=== PATIENT | male | born 1970 | race African-American/Black ===

== ENCOUNTER 2017-10-02 17:08 | Emergency (ER) | payer MEDICAID, OTHER ==
[~2017-10-02] VITALS: Ht 180.3 cm; Wt 110.0 kg
[2017-10-02 17:09] VITALS: BP 188/100
[2017-10-02] MEDS ORDERED: SODIUM CHLORIDE 0.9% 1,000 ML IV ONE (17:14)
== END 2017-10-02 20:52 | disposition left against medical advice (07) ==
LOC: ER 19:44
DX: G92 Toxic encephalopathy (principal); F19.10 Other psychoactive substance abuse, uncomplicated; Z88.2 Allergy status to sulfonamides
CPT/HCPCS: 99283; J7030

== ENCOUNTER 2022-01-09 12:41 | Emergency (ER) | payer MEDICAID ==
[~2022-01-09] VITALS: Ht 188 cm; Wt 90.0 kg
[2022-01-09 12:54] VITALS: BP 156/114
[2022-01-09] MEDS ORDERED: SODIUM CHLORIDE 0.9% 1,000 ML IV ONE (13:00)
[2022-01-09 14:14] LABS: BASOPHILS % 0.3 % (0.0-2.0); EOSINOPHILS % 0.4 % (0.0-5.0); HEMATOCRIT. 39.6 % (42.0-52.0); HEMOGLOBIN. 13.2 g/dL (14.0-18.0); LYMPHOCYTES % 24.1 % (20.0-50.0); MEAN CORPUSCULAR VOLUME 89.7 fL (80.0-94.0); MONOCYTES % 6.7 % (2.0-8.0); NEUTROPHILS % 68.5 % (40.0-76.0); PLATELET 239 x1000/uL (130-400); RED BLOOD CELL COUNT 4.41 mill/uL (4.7-6.1); RED CELL DISTRIBUTION WIDTH 15.1 % (11.6-14.6)
[2022-01-09 14:23] LABS: CHLORIDE 107 mEq/L (98-107)
== END 2022-01-09 17:08 | disposition home or self-care (01) ==
LOC: ER 13:08
DX: F19.10 Other psychoactive substance abuse, uncomplicated (principal); R45.1 Restlessness and agitation; F12.10 Cannabis abuse, uncomplicated
CPT/HCPCS: 36415; 80053; 85025; 96360; 96361; 99283; J7030

== ENCOUNTER 2024-06-06 00:36 | Emergency (ER) | payer MEDICAID ==
[~2024-06-06] VITALS: Ht 188 cm; Wt 107.0 kg
[~2024-06-06 00:36] MED LIST: NAPR-1176 MT
[2024-06-06 00:47] VITALS: O2SAT 99
[2024-06-06] MEDS: KETOROLAC 15MG/ML VIAL IM ONE (02:04)
[2024-06-06] MEDS: ACETAMINOPHEN 650MG/20.3ML UDC PO ONE (02:40)
[2024-06-06] MEDS: MAGNESIUM/ALUMINUM HYDROXIDE/SIMETHICONE 30ML UDC PO ONE (02:40)
[2024-06-06] MEDS: LIDOCAINE 5% PATCH TOP SCH (02:42)
[2024-06-06 03:05] VITALS: BP 135/86; PULSE 74; RESP 19; TEMP 36.66960; O2SAT 99
[2024-06-06] MEDS ORDERED: LIDO700A15 TP (10:02)
== END 2024-06-06 03:06 | disposition home or self-care (01) ==
LOC: ER 00:36
DX: M54.50 Low back pain, unspecified (principal); F12.10 Cannabis abuse, uncomplicated; F16.10 Hallucinogen abuse, uncomplicated; I10 Essential (primary) hypertension; Z59.00 Homelessness unspecified; Z88.2 Allergy status to sulfonamides
CPT/HCPCS: 99283; J1885

== ENCOUNTER 2024-06-06 04:56 | Emergency (ER) | payer MEDICAID ==
[~2024-06-06] VITALS: Ht 177.8 cm; Wt 84.0 kg
[2024-06-06 05:14] VITALS: O2SAT 99
[2024-06-06] MEDS ORDERED: LIDO700A15 TP (10:02)
[2024-06-06 10:33] VITALS: BP 148/84; PULSE 70; RESP 19; TEMP 36.94740; O2SAT 99
== END 2024-06-06 11:24 | disposition home or self-care (01) ==
LOC: ER 04:56
DX: M25.571 Pain in right ankle and joints of right foot (principal); F12.10 Cannabis abuse, uncomplicated; F16.10 Hallucinogen abuse, uncomplicated; Z88.2 Allergy status to sulfonamides
CPT/HCPCS: 73630; 99283